=== PATIENT | male | born 1990 | race Caucasian/White ===

== ENCOUNTER 2021-01-02 14:15 | Emergency (ER) | payer SELFPAY ==
[~2021-01-02] VITALS: Ht 160 cm; Wt 46.7 kg
[2021-01-02 14:24] VITALS: BP 109/51
--- NOTE | 2021-01-02 14:30 | NUR ---
PT AMB TO BED 8
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
[2021-01-02] MEDS ORDERED: NACL 0.9% 1,000 ML IV ONE ×2 (14:50→15:55)
[2021-01-02] MEDS ORDERED: ONDANSETRON 4 MG/2 ML VIAL IM ONE (14:50)
[2021-01-02] MEDS ORDERED: LORazepam 2 MG/ML VIAL IVP ONE ×2 (14:50→15:55)
[2021-01-02] MEDS ORDERED: chlordiazePOXIDE 25 MG CAP PO SCH (14:50)
[2021-01-02] MEDS ORDERED: CLONIDINE HYDROCHLORIDE 0.1 MG TAB PO ONE (14:50)
[2021-01-02 15:08] LABS: BASOPHILS % (AUTO) 1.5 % (0.0-2.0); EOSINOPHILS # (AUTO) 0.1 K/uL (0-0.4); EOSINOPHILS % (AUTO) 4.7 % (0.0-4.0); HEMATOCRIT 37.2 % (36-52); HEMOGLOBIN 11.7 g/dL (12.0-18.0); LYMPHOCYTES # (AUTO) 1.1 K/uL (2.0-11.5); LYMPHOCYTES % (AUTO) 34.7 % (20.5-51.1); MEAN CORPUSCULAR HEMOGLOBIN 21 pg (27-31); MEAN CORPUSCULAR HGB CONC 31 g/dL (33-37); MEAN CORPUSCULAR VOLUME 68.3 fL (80-94); MONOCYTES # (AUTO) 0.4 K/uL (0.8-1.0); MONOCYTES % (AUTO) 12.1 % (1.7-9.3); NEUTROPHILS # (AUTO) 1.4 K/uL (1.8-7.7); PLATELET COUNT (AUTO) 445 K/uL (140-450); RED BLOOD CELL COUNT(AUTO) 5.45 MIL/uL (4.20-6.10); RED CELL DISTRIBUTION WIDTH 18.2 % (11.6-13.7)
[2021-01-02 15:30] LABS: ACETAMINOPHEN < 0.5 ug/ml (10-30); ANION GAP 15.9 (8-16); ASPARTATE AMINOTRANSFERASE 16 U/L (15-37); CARBON DIOXIDE 26.3 mmol/L (21-32); CHLORIDE 108 mmol/L (98-107); CREATININE 0.7 mg/dL (0.6-1.3); GFR ARICAN-AMERICAN 168 mL/min (>90); GLUCOSE 103 mg/dL (74-106); MAGNESIUM 2.4 mg/dL (1.8-2.4); PHOSPHORUS 3.3 mg/dL (2.5-4.9); POTASSIUM 4.2 mmol/L (3.5-5.1); SALICYLATE < 2.8 mg/dL (2.8-20.0); SODIUM SERUM 146 mmol/L (136-145); TOTAL BILIRUBIN 0.1 mg/dL (0.0-1.0); UREA NITROGEN, BLOOD 10 mg/dL (7-18)
[2021-01-02] MEDS ORDERED: MORPHINE SULFATE 2 MG/ML SYR IVP ONE (16:20)
[2021-01-02 16:41] LABS: BARBITURATE, URINE NEGATIVE ng/ml (NEG <=200); BENZODIAZEPINE, URINE POSITIVE ng/mL (NEG <=200); CANNABINOID, URINE NEGATIVE ng/mL (NEG <=50); COCAINE, URINE NEGATIVE ng/mL (NEG <=300); OPIATE, URINE NEGATIVE ng/mL (NEG <=2000); PHENCYCLIDINE SCREEN,URINE NEGATIVE ng/mL (NEG <=25)
--- NOTE | 2021-01-02 19:18 | NUR ---
REPORT GIVEN TO OBEY HEAD. ALL CARES TRANSFERRED AT THIS TIME.
[2021-01-02 19:57] VITALS: BP 132/72
--- NOTE | 2021-01-02 20:03 | NUR ---
PATIENT ALERT ORIENTED DC INSTRUCTION GAVE AND EXPLAINED VITALS SIGNS IN NORMAL LIMITS STABLE //DiCario RN
== END 2021-01-02 19:30 | disposition home or self-care (01) ==
LOC: MED 14:15
DX: F10.239 Alcohol dependence with withdrawal, unspecified (principal); R11.2 Nausea with vomiting, unspecified; M79.10 Myalgia, unspecified site; R44.1 Visual hallucinations; F17.200 Nicotine dependence, unspecified, uncomplicated
CPT/HCPCS: 36415; 80053; 80305; 81002; 83735; 84100; 85025; 93005; 96361; 96372; 96374; 96375; 96376; 99284; G0480; G0482; J2060; J2270; J2405; J7030